=== PATIENT | male | born 1960 | race Caucasian/White ===

== ENCOUNTER 2017-01-09 05:21 | Day surgery (SDC) | payer BC ==
[~2017-01-09 05:21] MED LIST: ADVIL PO; ASAB PO; BRILINTA90 MG PO; KRILLOIL PO; LEXAPRO10 PO; MEDROL8 MG; MEDROLPAK4 PO; MULTIPLE VIT PO; OMNICEF300 PO; PLAVIX PO; PRIN2.5 PO; PROAIR HFA INH; SEV VITAMINS PO; ULTRAM50 PO; VITAMIN B-122500 MCG SL; ZESTRIL20 MG PO; ZITHROMAX500 MG PO
== END 2017-01-09 10:19 | disposition home or self-care (01) ==
LOC: SDC 05:21
PROVIDERS: Orthopaedic Surgery
PROC: B01BZZZ Fluoroscopy of Spinal Cord (ICD-10-PCS; 2017-01-09)
PROC: 3E0R3BZ Introduction of Anesthetic Agent into Spinal Canal, Percutaneous Approach (ICD-10-PCS; principal; 2017-01-09 09:30)
DX: M54.16 Radiculopathy, lumbar region (principal); I25.10 Atherosclerotic heart disease of native coronary artery without angina pectoris; F32.9 Major depressive disorder, single episode, unspecified; J45.909 Unspecified asthma, uncomplicated; K21.9 Gastro-esophageal reflux disease without esophagitis; Z90.49 Acquired absence of other specified parts of digestive tract; Z79.82 Long term (current) use of aspirin; Z79.899 Other long term (current) drug therapy; Z98.890 Other specified postprocedural states; Z87.891 Personal history of nicotine dependence
CPT/HCPCS: J1040; J2250; J3010; Q9967